=== PATIENT | female | born 1950 | race American Indian/Alaskan Native ===

== ENCOUNTER 2016-11-03 11:06 | Outpatient (CLI) | payer MEDICARE ==
--- NOTE | 2016-11-03 14:13 | Mammography Report ---
BILATERAL DIGITAL SCREENING MAMMOGRAM with CAD: 11/03/16 11:06:00 CLINICAL: Routine screening. COMPARISON:10/05/15 FINDINGS: The breasts are heterogeneously dense, which may obscure small masses. No mass, architectural distortion or suspicious calcifications. IMPRESSION: No mammographic evidence of malignancy. BI-RADS CATEGORY: 1 - - Negative RECOMMENDATION: Routine mammographic screening in one year. COMMENT: Patient follow-up letters are generated by our [employer] application.
== END 2016-11-03 11:07 | disposition home or self-care (01) ==
LOC: SPVWC 11:06
PROVIDERS: ATTEND Obstetrics & Gynecology
DX: Z12.31 Encounter for screening mammogram for malignant neoplasm of breast (principal)
CPT/HCPCS: 77067; G0202

== ENCOUNTER 2017-11-05 08:03 | Outpatient (CLI) | payer MEDICARE ==
--- NOTE | 2017-11-05 15:15 | Mammography Report ---
BILATERAL DIGITAL SCREENING MAMMOGRAM with CAD: 11/05/17 08:03:00 CLINICAL: Routine screening. COMPARISON:11/03/16 FINDINGS: The breasts are heterogeneously dense, which may obscure small masses. No mass, architectural distortion or suspicious calcifications. IMPRESSION: No mammographic evidence of malignancy. BI-RADS CATEGORY: 1 - - Negative RECOMMENDATION: Routine mammographic screening in one year. COMMENT: Patient follow-up letters are generated by our [employer] application.
== END 2017-11-05 08:04 | disposition home or self-care (01) ==
LOC: SPVWC 08:03
PROVIDERS: ATTEND Obstetrics & Gynecology
DX: Z12.31 Encounter for screening mammogram for malignant neoplasm of breast (principal)
CPT/HCPCS: 77067

== ENCOUNTER 2019-10-21 16:00 | Outpatient (CLI) | payer MEDICARE ==
--- NOTE | 2019-10-24 08:20 | Ultrasound Report ---
ULTRASOUND THYROID INDICATION / CLINICAL INFORMATION: ENLARGED THYROID. COMPARISON: None available. FINDINGS: RIGHT LOBE: Size = 4.1 x 1.3 x 2.0 cm. - Echogenicity: Heterogeneous. - Vascularity: Normal. - Nodules < 1 cm: Multiple 6 to 8 mm hypoechoic nodules.. - Nodules >= 1 cm or Suspicious Nodules: 1.6 cm hypoechoic nodule within the left lobe of the thyroid gland. LEFT LOBE: Size = 8.3 x 2.1 x 2.6 cm. - Echogenicity: Heterogeneous. - Vascularity: Normal. - Nodules < 1 cm: None. - Nodules >= 1 cm or Suspicious Nodules: None. ISTHMUS: No significant abnormality. Thickness = 0.8 cm. - Nodules < 1 cm: None. - Nodules >= 1 cm or Suspicious Nodules: 4.6 x 1.8 x 2.3 cm nodule that is heterogeneous in echogenic ity. There is a 2.5 x 1.8 x 2.4 cm nodules that is heterogeneous in echogenicity within the lower radha e the left kidney.. LYMPH NODES: No abnormal lymph nodes. PARATHYROID GLANDS: No abnormal parathyroid gland. ADDITIONAL FINDINGS: None. IMPRESSION: 1. 1.7 cm right thyroid nodule, TI-RADS 4, FNA biopsy suggested. 2. Large 4.6 cm nodule within the left lobe of the thyroid gland, TI-RADS 3. Ultrasound-guided FNA bi opsy is suggested 3. 2.5 cm mixed cystic and solid nodule within the left lobe of the thyroid gland consistent with TI- RADS 3. One year ultrasound follow-up suggested. Note: Nodule size based on mean (average) size of 3 dimensions. Note: Nodules < 1 cm do not typically require follow-up or FNA unless there are suspicious features ( KARY, 2015) ACR TI-RADS Thyroid Nodule Recommendations TI-RADS 1 (0 points) -- Benign. No FNA or follow-up. TI-RADS 2 (1-2 points) -- Not suspicious. No FNA or follow-up. TI-RADS 3 (3 points) -- Mildly suspicious. Follow up in 1 year if 1.5 cm. FNA if 2.5 cm. TI-RADS 4 (4-6 points) -- Moderately suspicious. Follow up in 1 year if 1.0 cm. FNA if 1.5 cm. TI-RADS 5 (7+ points) -- Highly suspicious. Follow up in 1 year if 0.5 cm. FNA if 1.0 cm. Signer Name: Jeramy Sawyer MD Signed: 10/21/2019 5:16 PM Workstation Name: [id number]
== END 2019-10-21 16:01 | disposition home or self-care (01) ==
LOC: SPVWC 16:00
PROVIDERS: ATTEND Internal Medicine
DX: E04.1 Nontoxic single thyroid nodule (principal)
CPT/HCPCS: 76536

== ENCOUNTER 2019-12-09 15:09 | Outpatient (CLI) | payer MEDICARE ==
--- NOTE | 2019-12-10 08:35 | Mammography Report ---
BILATERAL DIGITAL SCREENING MAMMOGRAM WITH CAD HISTORY: Annual screening mammogram. TECHNIQUE: Routine digital mammographic imaging performed. This examination was interpreted with brandon lyles benefit of Computer-aided Detection analysis. COMPARISON: 12/04/2018, 11/05/2017, 11/03/2016. FINDINGS: Breast Density: heterogeneously dense breast parenchymal pattern which somewhat lessens the sensitivi ty of the evaluation. Digital CC and MLO views demonstrate no mammographic evidence of malignancy. IMPRESSION: No mammographic evidence of malignancy. If the clinical examination remains stable, recommend bilate ral mammogram in approximately one year. BIRADS 1: Negative. FURTHER INFORMATION: According to the [employer], yearly mammograms are recommend ed starting at age 40 and continuing as long as a woman is in good health. Clinical Breast Exams shou ld be part of a periodic health exam-about every 3 years for women in their 20s and 30s and every yea r for women 40 and over. Breast self exam is an option for women starting in their 20s. Any breast ch astrid noted on a breast self exam should be reported promptly to the patient's healthcare provider. Br east MRI is recommended for women with an approximately 20-25% or greater lifetime risk of breast can cer, including women with a strong family history of breast or ovarian cancer and women who have been treated for Hodgkin's disease. A negative Mammography report should not discourage follow up or biopsy of a clinically significant f inding and/or abnormality. Dense breast tissue may obscure small neoplasms. The patient will be entered into a reminder system with a target due date for the next screening mamm ogram. Signer Name: Dejuan Stein MD Signed: 12/10/2019 8:30 AM Workstation Name: [id number]
== END 2019-12-09 15:10 | disposition home or self-care (01) ==
LOC: SPVWC 15:09
PROVIDERS: ATTEND Obstetrics & Gynecology
DX: Z12.31 Encounter for screening mammogram for malignant neoplasm of breast (principal)
CPT/HCPCS: 77067